=== PATIENT | male | born 1995 | race Two or more races ===

== ENCOUNTER → 2021-01-11 | Emergency (ER) | payer OTHER ==
[~2021-01-11] VITALS: Ht 175.3 cm; Wt 90.7 kg
== END | disposition home or self-care (01) ==
LOC: ER 20:54
DX: L02.31 Cutaneous abscess of buttock (principal)

== ENCOUNTER 2021-03-12 10:22 | Emergency (ER) | payer OTHER ==
[~2021-03-12] VITALS: Ht 175.3 cm; Wt 91.2 kg
[2021-03-12] MEDS ORDERED: ZYRTEC10 M3 PO (10:45)
[2021-03-12] MEDS ORDERED: ALLEGRA ALLERGY60 MG (10:45)
== END 2021-03-12 11:39 | disposition home or self-care (01) ==
LOC: ER 10:22
DX: S61.311A Laceration without foreign body of left index finger with damage to nail, initial encounter (principal); W26.0XXA Contact with knife, initial encounter; Y93.89 Activity, other specified; Y92.89 Other specified places as the place of occurrence of the external cause; Y99.8 Other external cause status